=== PATIENT | male | born 1975 | race Two or more races ===

== ENCOUNTER 2017-08-31 23:34 | Observation (INO) | payer BC ==
[~2017-08-31] VITALS: Ht 162.6 cm; Wt 106.7 kg
[2017-08-31] MEDS ORDERED: PANTOPRAZOLE 40 MG 10ML VIAL IV ONE (23:45)
[2017-08-31] MEDS ORDERED: ASPIRIN 325 MG TAB PO ONE (23:45)
[2017-08-31] MEDS ORDERED: SODIUM CHLORIDE 0.9% 1000ML 1,000 ML ONE (23:45)
[2017-09-01] VITALS (9 sets, daily range): BP systolic 121–153; BP diastolic 77–92
[2017-09-01] MEDS ORDERED: IBUPROFEN200 MG PO (00:25)
[2017-09-01] MEDS ORDERED: SODIUM CHLORIDE FLUSH 10 ML SYR INJ PRN (01:30)
[2017-09-01] MEDS ORDERED: ACETAMINOPHEN 325 MG TAB PO PRN (01:30)
[2017-09-01] MEDS ORDERED: FAMOTIDINE 20 MG TAB PO SCH (01:30)
[2017-09-01] MEDS ORDERED: PROMETHAZINE HCL (IM) 25 MG/ML VIAL IV PRN (01:30)
[2017-09-01] MEDS: MORPHINE SULFATE 2 MG/ML SYR IV PRN ×3 (03:26→20:00)
[2017-09-01 08:30] LABS: CREATINE KINASE 74 IU/L (30-200)
[2017-09-01] MEDS ORDERED: ASPIRIN 81 MG ENTERIC COATED PO SCH (09:00)
--- NOTE | 2017-09-01 11:40 | Diagnostic Imaging Report ---
EXAMINATION: CHEST SINGLE (PORTABLE) INDICATION: \S\PLEURAL EFFUSION COMPARISON: None FINDINGS: AP view TUBES and LINES: Median sternotomy wires and mediastinal clips are present. LUNGS: Lungs are poorly inflated. Right lung is clear. Calcified granuloma in the lateral right lung base. Left-sided atelectasis and/or consolidation. PLEURA: Small to moderate left pleural effusion. HEART AND MEDIASTINUM: Cardiac size is moderately enlarged. BONES AND SOFT TISSUES: No acute osseous lesion. Soft tissues are unremarkable. UPPER ABDOMEN: No free air under the diaphragm. IMPRESSION: 1. Poorly inflated lungs. 2. Moderate cardiomegaly with small to moderate left pleural effusion. Signed by: Dr. Nadeem Faith M.D. on 09/01/2017 11:37 AM
[2017-09-01] MEDS ORDERED: ALBUTEROL SULF 0.083% NEB SOLN 3 ML NEB NEB PRN (17:30)
--- NOTE | 2017-09-01 17:53 | Consultation ---
DATE OF CONSULTATION: September 01, 2017 PULMONARY MEDICINE CONSULTATION HISTORY: Mr. Bautista is a pleasant 42-year-old gentleman with shortness of breath. The patient has a history of chest pain early in 2018. The patient had a CT of the chest, which demonstrated a large anterior mediastinal mass. At that point, he underwent a biopsy which was nondiagnostic by needle. Therefore, on June 14, 2017, the patient underwent operative assessment by Dr. Bennett. 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 There was dense adhesions to the pericardium from the midline to the left phrenic nerve area. There was no invasion into the pericardium or great vessels. No brian adenopathy. On frozen section analysis, there appeared to be abscess formation in the mass that was removed. 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 Therefore, thymus tissue was favored. After surgery, the patient never regained his baseline functionality. He was having early dyspnea. The patient had worsening shortness of breath so therefore he presented to the emergency room. CT of chest was done showing no PE on angiography with some dilated esophagus and elevated left diaphragm with moderate size effusion on the left and left lower lobe total atelectasis. I am consulted. PAST MEDICAL HISTORY: In May 2017, thymic mass, asthma, allergies, daily GERD, status post anterior median sternotomy in May 2017. MEDICATIONS: Included Oxybutynin and Nexium. ALLERGIES: TRAMADOL. SOCIAL HISTORY: No smoking. No significant alcohol use. No drugs. 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 No on-service duty and no known occupational exposures that were hazardous. FAMILY HISTORY: Noncontributory. REVIEW OF SYSTEMS GENERAL: No weight changes. OPHTHALMIC: No double vision. HEENT: No dry mouth. ENDOCRINE: No thyroid disease. LUNGS: No recent asthma exacerbations. CARDIAC: No heart attacks. GI: No diarrhea. : No blood in the urine. DERMATOLOGIC: No rash. NEUROLOGIC: No seizures. PHYSICAL EXAMINATION VITALS: Afebrile. Vital signs noted per electronic record. GENERAL: No acute distress. Alert and calm. HEENT: Normocephalic and atraumatic. NECK: Supple. Throat midline. LUNGS: Bilateral air entry. Few decreased breath sounds especially on the left side. No wheezes. CARDIOVASCULAR: S1 and S2. No murmurs, rubs or gallops. ABDOMEN: Soft and nontender. EXTREMITIES: No clubbing. No cyanosis. There is no edema. INTEGUMENT: No rash. No purpura. BNP level was normal. Other labs per record. IMPRESSION AND PLAN 1. Moderate size left pleural effusion, under evaluation: Differential diagnosis is wide and could include , lymphatic injury, post inflammatory, less likely infectious. Less likely immunologic, but cannot be ruled out. Cannot rule out infection especially with baseline necrotic features seen on pathology. 2. Elevated left diaphragm, not otherwise specified: Considerations could also be postsurgical complication of scarring, trapped lung, phrenic nerve injury, or other. 3. Obesity. 4. Possible obstructive sleep apnea. 5. History of asthma and allergies. 6. Distended esophagus and also gastroesophageal reflux disease as clinical correlation daily symptoms. 7. History of anterior mediastinal mass resection that was large and necrotic per pathology, and therefore, indeterminate. No cuauhtemoc malignancy known, however. Continue current treatment at this time. I eventually want to look at the slides from the thymus for mass resection. The patient will need surveillance of the mediastinum as this was nondiagnostic. For short term, the patient needs thoracentesis with image guidance. Outpatient PFTs are warranted to assess and rule out restrictive lung disease. Furthermore, the patient will need efforts to limit GERD, which can contribute to shortness of breath. If the GERD remains refractory, the patient also needs outpatient sleep study. Thank you very much, Dr. Kelly, for allowing me the chance to participate in the care of Mr. Bautista. Do not hesitate to contact me if I can help in any way. Job#: [id number] CRYSTAL
[2017-09-02] VITALS: BP 137/81
[2017-09-02 04:00] VITALS: BP 128/76
[2017-09-02 05:12] LABS: BASOPHILS # (AUTO) 0.1 (0.0-0.1); BASOPHILS % 0.6 % (0.0-1.0); EOSINOPHILS # (AUTO) 0.4 (0.0-0.4); EOSINOPHILS % 4.5 % (0.0-6.0); HEMATOCRIT 44.8 % (38.2-49.6); HEMOGLOBIN 14.3 g/dL (14.0-18.0); LYMPHOCYTES # (AUTO) 2.4 (1.0-3.2); LYMPHOCYTES % 28.6 % (18.0-39.1); MEAN CORPUSCULAR HEMOGLOBIN 25.9 pg (28-32); MEAN CORPUSCULAR HGB CONC 31.9 g/dL (31-35); MEAN CORPUSCULAR VOLUME 81.2 fL (81-99); MONOCYTES # (AUTO) 0.6 (0.2-0.8); MONOCYTES % 7.4 % (4.4-11.3); NEUTROPHILS % 58.5 % (38.7-80.0); PLATELET COUNT 388 x10e3/uL (140-360); RED BLOOD COUNT 5.52 x10e6/uL (4.3-5.7); RED CELL DISTRIBUTION WIDTH 14.5 % (11.7-14.4)
[2017-09-02 05:21] LABS: INR 1.07; PROTHROMBIN TIME 13.1 seconds (11.9-14.5)
[2017-09-02 05:22] LABS: PARTIAL THROMBOPLASTIN TIME 33.7 seconds (23.8-35.5)
[2017-09-02 05:25] LABS: ANION GAP 15.2 mmol/L (8-16); BLOOD UREA NITROGEN 12 mg/dL (7-26); BUN/CREATININE RATIO 10 (6-25); CALCIUM 9.8 mg/dL (8.4-10.2); CARBON DIOXIDE 28 mmol/L (22-29); CHLORIDE 100 mmol/L (98-107); CREATININE, SERUM 1.21 mg/dL (0.72-1.25); EST GLOMERULAR FILTRATION RATE > 60 ML/MIN (60-); GLUCOSE 105 mg/dL (74-118); POTASSIUM 4.2 mmol/L (3.5-5.1); SODIUM 139 mmol/L (136-145)
[2017-09-02 06:25] LABS: ALBUMIN 3.3 g/dL (3.5-5.0); BILIRUBIN,DIRECT 0.2 mg/dL (0.0-0.5)
[2017-09-02] MEDS ORDERED: LORAZEPAM INJ 2 MG/ML VIAL IV ONE (07:30)
[2017-09-02] MEDS: MORPHINE SULFATE 2 MG/ML SYR IV PRN (08:24)
[2017-09-02 10:20] VITALS: BP 140/85
[2017-09-02 12:16] VITALS: BP 129/83
--- NOTE | 2017-09-02 12:48 | Diagnostic Imaging Report ---
PROCEDURE: ULTRASOUND GUIDED THORACENTESIS COMPARISON: [facility], DX, CHEST SINGLE (PORTABLE), 09/01/2017, 11:21. INDICATIONS:PLEURAL EFFUSION FINDINGS: After informed consent was obtained, the patient was placed in the sitting position and preliminary ultrasound of the posterior chest identified a safe route into the left pleural effusion. The overlying skin was prepped and draped in usual sterile fashion. Lidocaine 1% was used for local anesthesia. Under ultrasound guidance, a 5 [place] centesis needle was advanced into the pleural fluid and only 10 cc's were able to be aspirated. The specimen was sent to the laboratory. The patient tolerated the procedure well and there were no immediate post-procedural complications. A post-thoracentesis chest radiograph will be obtained. CONCLUSION: Small volume ultrasound-guided left thoracentesis with removal of only 10 cc's. Luis Manuel Berman D.O. Dictated by: Luis Manuel Berman D.O. on 09/02/2017 at 12:52 Electronically approved by: Luis Manuel Berman D.O. on 09/02/2017 at 12:52
--- NOTE | 2017-09-02 12:52 | Diagnostic Imaging Report ---
PROCEDURE: CHEST XRAY POST PROCEDURE COMPARISON: Patients [facility], DX, CHEST SINGLE (PORTABLE), 09/01/2017, 11:21. INDICATIONS: STATUS POST THOARACENTESIS FINDINGS: LUNGS: Left basilar atelectasis. PLEURA: There is no pneumothorax. Small volume pleural effusion that is likely partially loculated. HEART \T\ MEDIASTINUM: The heart is prominent. BONES \T\ SOFT TISSUES: No acute findings. CONCLUSION: Small volume left pleural effusion. Luis Manuel Berman D.O. Dictated by: Luis Manuel Berman D.O. on 09/02/2017 at 12:56 Electronically approved by: Luis Manuel Berman D.O. on 09/02/2017 at 12:56
[2017-09-02] MEDS ORDERED: ONDANSETRON HCL INJ 2 MG/ML VIAL IV PRN (13:00)
[2017-09-02] MEDS ORDERED: SODIUM CHLORIDE 0.9% 250ML 250 ML ONE (13:04)
[2017-09-02 14:03] LABS: GLUCOSE,BODY FLUID 93 mg/dL
--- NOTE | 2017-09-02 15:07 | Discharge Summary ---
PRIMARY CARE DOCTOR: None. FINAL DIAGNOSIS: Left moderate pleural effusion. SECONDARY DIAGNOSES 1. Status post thymectomy about 2-1/2 months ago. 2. Morbid obesity. 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 PROCEDURES/STUDIES PERFORMED 1. CT of the chest. 2. Thoracentesis. HISTORY: Per H and P. HOSPITAL COURSE: The patient was admitted. No evidence of myocardial infarction by repeat negative troponins. Most likely, the etiology for his left-sided chest pain is pleural effusion. Etiology is unclear at this time, likely inflammatory response from his thymectomy. Thoracentesis was done. However, only 10 mL was able to be aspirated. From what we can tell, it appears to be exudative, but with a normal glucose level, this is not infectious. I have discussed with Dr. Rudd. At this time, the patient can be discharged home. He will have followup with Dr. Rudd for a pulmonary function test. The patient was seen and examined today. CONDITION ON DISCHARGE: Stable. DISCHARGE MEDICATIONS: Please see medication reconciliation form. JASMIN BAIG M.D. Job#: [id number]
--- NOTE | 2017-09-03 06:21 | Progress Note ---
DATE: September 02, 2017 PULMONARY MEDICINE PROGRESS NOTE SUBJECTIVE: Mr. Bautista was seen and examined at bedside. He continues to have the same shortness of breath. He did go down for thoracentesis. Only 10 mL was able to be removed. Patient did not have any pneumothorax after this procedure. It was assessed that the fluid seems a little bit thick during the procedure as per the observers, 96% oxygen saturation, room FiO2. REVIEW OF SYSTEMS: No bleeding, no chest pain. OBJECTIVE VITAL SIGNS: Noted per the chart record. GENERAL: No acute distress. Alert and calm. HEENT: Normocephalic, atraumatic. NECK: Supple. Throat midline. LUNGS: Bilateral air entry, a few decreased breath sounds both bases, especially the left base, no wheezes. CARDIOVASCULAR: S1, S2. No murmurs, rubs, or gallops. ABDOMEN: Soft, nontender. EXTREMITIES: No clubbing, no cyanosis, there is no edema. INTEGUMENT: No rash, no purpura. LABS: AST 57, ALT 145, alkaline phosphatase 136. Hematocrit 45, white count 8.5. IMPRESSION AND PLAN 1. Dyspnea, multifactorial. 2. Pleural effusion, suspect trapped lung postoperative. 3. Anterior mediastinal mass status post resection. 4. Obesity. 5. Significant gastroesophageal reflux disease, difficult to treat. 6. Possible obstructive sleep apnea. Patient should continue to try to mobilize. Patient at this time will have pleural fluid analysis sent although cytology will be difficult given the low output. However, from the chemistries and possibly culture, we want to see if there is any sign of infection. Patient once again will be best suited for evaluation of the slides from pathology. Patient may need further surveillance of the anterior mediastinum if too much of this tumor was necrotic, that it is hard to tell if it was malignant or not. We still want to find the etiology of the patient's shortness of breath and elevated left hemidiaphragm which will probably need PFTs and consideration for surgery if the patient remains trapped. Furthermore, I recommended for patient to continue treatment of GERD and to continue to remain active to prevent debility and deconditioning. Job#: [id number] FREDDY
== END 2017-09-02 17:03 | disposition home or self-care (01) ==
LOC: FSED 23:34 → ERHOLD 09-01 01:40 → IMCU 09-01 03:05 → MED/SURG 09-01 17:18
PROVIDERS: ADMIT Internal Medicine; ATTEND Internal Medicine
DX: J90 Pleural effusion, not elsewhere classified (principal); R07.9 Chest pain, unspecified; I30.8 Other forms of acute pericarditis; E66.01 Morbid (severe) obesity due to excess calories; K21.9 Gastro-esophageal reflux disease without esophagitis; Z68.41 Body mass index [BMI] 40.0-44.9, adult; Z98.890 Other specified postprocedural states
CPT/HCPCS: 32555 ×2; 36415 ×2; 71045 ×2; 71275; 74470; 80048; 80053; 80076; 81003; 82550; 82553; 82945; 83615; 83880; 84484; 85025 ×2; 85610 ×2; 85730; 87070; 87205; 88112; 88305; 93005; 99284; G0378 ×2; J2270 ×2; J2550; J7030; J7050

== ENCOUNTER → 2017-09-20 | Day surgery (SDC) | payer BC ==
[~2017-09-20] MED LIST: FENTANYL CITRATE/PF 100MCG/2 ML INJ ONE; IBUPROFEN200 MG PO; METOCLOPRAMIDE HCL 10 MG/2ML VIAL ONE; MIDAZOLAM HCL 2 MG/2 ML VIAL ONE; NEXIUM40 MG PO; PROPOFOL IV EMULSION 10 MG/ML 20 ML VIAL ONE; PROPOFOL IV EMULSION 10 MG/ML 50 ML VIAL ONE; SYMBICORT 16010.2 GM INH; VENTOLIN HFA18 GM INH
--- NOTE | 2017-09-20 14:48 | Operative Report ---
DATE OF PROCEDURE: September 20, 2017 PROCEDURE PERFORMED: Esophagogastroduodenoscopy with esophageal dilatation and biopsies. INDICATIONS FOR PROCEDURE: Acid reflux, dysphagia. MEDICATION: Patient was done under MAC. Please see anesthesiologist's note. PROCEDURE: With the patient in the left lateral decubitus position, the flexible fiberoptic Olympus gastroscope was introduced into the esophagus under direct visualization without any difficulty. There was some patchy erythema noted in the distal esophagus. A minute tongue of velvety red mucosa was noted to extend proximally from the GE junction, and that was biopsied to rule out Washburn's. Esophagus was dilated to size 52-[place] Richards. The scope was then advanced with ease into the stomach, and mucosa overlying the antrum and the body revealed some patchy, intense erythema and mild to moderate edema, and biopsies were obtained and sent to stain for H. pylori. The pylorus was of normal contour and shape. It was intubated with ease, and the scope was advanced all the way to the 2nd portion of the duodenum. The scope was then withdrawn slowly. Mucosa overlying the proximal 2nd portion and the duodenal bulb appeared to be within normal limits. The scope was then withdrawn back into the stomach and retroflexed. The mucosa overlying the fundus and the cardia appeared to be within normal limits. The scope was then straightened out. The stomach was decompressed. The scope was subsequently withdrawn. Patient tolerated the procedure well. IMPRESSION 1. Distal esophagitis, mild. 2. Rule out Washburn's esophagus. 3. Esophagus dilated to size 52-[place] Richards. 4. Gastritis, biopsied. Biopsies sent to stain for H. pylori. PLAN: Follow up histology. Increase Nexium to 40 mg 1 p.o. a.c. b.i.d. If symptoms persist, then will add Reglan 10 mg 1 p.o. a.c. t.i.d. and nightly. Job#: [id number]
== END | disposition home or self-care (01) ==
LOC: OR 09:58
PROVIDERS: ATTEND Internal Medicine Gastroenterology
DX: K21.9 Gastro-esophageal reflux disease without esophagitis (principal); K29.50 Unspecified chronic gastritis without bleeding; K20.9 Esophagitis, unspecified; I10 Essential (primary) hypertension; Z88.6 Allergy status to analgesic agent; Z68.39 Body mass index [BMI] 39.0-39.9, adult
CPT/HCPCS: 43239; 43450; J2250; J2765

== ENCOUNTER 2019-09-22 22:59 | Emergency (ER) | payer BC ==
[~2019-09-22] VITALS: Ht 160 cm; Wt 106.6 kg
[~2019-09-22 22:59] MED LIST changes: -FENTANYL CITRATE/PF 100MCG/2 ML INJ ONE; -METOCLOPRAMIDE HCL 10 MG/2ML VIAL ONE; -MIDAZOLAM HCL 2 MG/2 ML VIAL ONE; -PROPOFOL IV EMULSION 10 MG/ML 20 ML VIAL ONE; -PROPOFOL IV EMULSION 10 MG/ML 50 ML VIAL ONE
[2019-09-23] MEDS ORDERED: ONDANSETRON HCL 4 MG ORAL DISINTEGRATING TAB PO ONE
[2019-09-23] MEDS ORDERED: ONDANSETRON HCL 4 MG ORAL DISINTEGRATING TAB ONE (00:08)
--- NOTE | 2019-09-23 00:15 | NUR ---
RETURNED FROM CT. PT REFUSING CT STATING CLOSTERPHOBIC. INFORMED AND SPOKE TO PT. PT STILL REFUSED.
--- NOTE | 2019-09-23 00:30 | Emergency Department Note ---
History of Present Illnes History of Present Illness Chief Complaint: n/sweating x 1.5 hours History of Present Illness This is a 44 year old Other male . 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 Onset (how long ago): hour(s) (1.5) Radiation: Reports non-radiation Severity: moderate Duration (how long): hour(s) (1.5) Timing of current episode: intermittent Progression: partially resolved Chronicity: new Context: Reports recent illness; Denies recent surgery, Denies recent immobilization, Denies recent travel, Denies trauma/injury, Denies new medications, Denies hx of DVT/PE, Denies non- compliance w/ medications Relieving factors: none Exacerbating factors: none Associated symptoms: Reports headaches Treatments prior to arrival: none Past Medical/Family History Physician Review I have reviewed the patient's past medical and family history. Any updates have been documented here. Past Medical History Recent Fever: No Clinical Suspicion of Infectio: No New/Unexplained Change in Ment: No Past Medical History: Asthma Other Medical History: CHRONIC BACK PAIN Other Surgery: THYMUS GLAND REMOVED 2018 Social History Smoking Cessation: Never Smoker Alcohol Use: None Any Illegal Drug Use: No Physically hurt or threatened: No Other Last Tetanus: unknown Any Pre-Existing Lines (PICC,: No Review of Systems Review of Systems Constitutional: Reports no symptoms EENTM: Reports no symptoms Cardiovascular: Reports no symptoms Respiratory: Reports as per HPI Gastrointestinal: Reports as per HPI Genitourinary: Reports no symptoms Musculoskeletal: Reports no symptoms Integumentary: Reports no symptoms Neurological: Reports as per HPI, Reports headache Psychological: Reports no symptoms Endocrine: Reports no symptoms Hematological/Lymphatic: Reports no symptoms Review of other systems: All other systems negative Physical Exam Related Data Allergies: Coded Allergies: tramadol (Verified Allergy, Severe, 09/01/17) seizures, hives Triage Vital Signs Vital Signs Date Time Temp Pulse Resp B/P (MAP) Pulse Ox O2 Delivery O2 Flow Rate FiO2 09/22/19 23:15 98.1 79 18 157/92 99 Room Air Vital signs reviewed: Yes Physical Exam CONSTITUTIONAL Constitutional: Present well-developed, Present well-nourished HENT HENT: Present normocephalic, Present atraumatic, Present oropharynx clear/moist, Present nose normal, Present other (maxillary/ethmoidal sinus tederness) HENT L/R: Present left ext ear normal, Present right ext ear normal EYES Eyes: Reports PERRL, Reports conjunctivae normal NECK Neck: Present ROM normal PULMONARY Pulmonary: Present effort normal, Present breath sounds normal CARDIOVASCULAR Cardiovascular: Present regular rhythm, Present heart sounds normal, Present capillary refill normal, Present normal rate GASTROINTESTINAL Abdominal: Present soft, Present nontender, Present bowel sounds normal GENITOURINARY Genitourinary: Present exam deferred SKIN Skin: Present warm, Present dry MUSCULOSKELETAL Musculoskeletal: Present ROM normal NEUROLOGICAL Neurological: Present alert, Present oriented x 3, Present no gross motor or sensory deficits PSYCHOLOGICAL Psychological: Present mood/affect normal, Present judgement normal Results Imaging Imaging results reviewed: Yes (cxr wnl) Assessment & Plan Medical Decision Making MDM see below Assessment & Plan Final Impression: (1) Acute bronchitis (2) Acute sinusitis Depart Disposition: HOME, SELF-CARE Last Vital Signs Date Time Temp Pulse Resp B/P (MAP) Pulse Ox O2 Delivery O2 Flow Rate FiO2 09/22/19 23:15 98.1 79 18 157/92 99 Room Air Home Meds Active Scripts Prednisone (PREDNISONE) 20 Mg Tab, 60 MG PO DAILY PRN for MODERATE PAIN (4-6), #12 TAB Prov:TITO DIAMOND 09/23/19 Levofloxacin (LEVAQUIN) 750 Mg Tablet, 750 MG PO DAILY for 9 Days, #9 TAB Prov:TITO DIAMOND 09/23/19 Reported Medications Budesonide/Formoterol Fumarate (SYMBICORT 160-4.5 MCG INHALER) 10.2 Gm Hfa.aer.ad, INH BID 09/20/17 Albuterol Sulfate (VENTOLIN HFA) 18 Gm Hfa.aer.ad, INH PRN 09/20/17 Esomeprazole Magnesium (NEXIUM) 40 Mg Capsule.dr, 40 MG PO DAILY PROTONIX [facility]APE[facility] FOR NEXIUM PER [facility] 09/18/17 Medications in the ED Ondansetron HCl 4 mg ONCE ONCE PO Last administered on 09/23/19at 00:03; Admin Dose 4 MG; Start 09/23/19 at 00:00; Stop 09/23/19 at 00:01; Status UNV TITO DIAMOND Sep 23, 2019 00:29
--- NOTE | 2019-09-23 00:44 | Diagnostic Imaging Report ---
EXAMINATION: CXR 2 VIEW - HOPD INDICATION: ^cough ^[id number] ^0005 COMPARISON: Radiograph dated 09/01/2017 FINDINGS: TUBES and LINES: None. LUNGS: Normal lung volumes. Lungs are clear. No consolidations. PLEURA: No pleural effusion or pneumothorax. HEART AND MEDIASTINUM: The cardiomediastinal silhouette is unremarkable. Mediastinal surgical clips. BONES AND SOFT TISSUES: No acute osseous lesion. Soft tissues are unremarkable. Unchanged in underwires. UPPER ABDOMEN: No free air under the diaphragm. IMPRESSION: No acute thoracic radiographic abnormality. Signed by: Arnie Grissom MD on 09/23/2019 12:40 AM
[2019-09-23] MEDS ORDERED: LEVOFLOXACIN 500 MG TAB PO ONE (00:45)
[2019-09-23] MEDS ORDERED: LEVAQUIN750 MG PO (00:54)
[2019-09-23] MEDS ORDERED: PREDNISONE20 MG PO (00:54)
[2019-09-23] MEDS ORDERED: ONDANSETRON ODT8 MG PO (01:04)
[2019-09-23 01:08] VITALS: BP 157/92
[2019-09-23] MEDS ORDERED: LEVOFLOXACIN 500 MG TAB ONE (01:10)
== END 2019-09-23 01:08 | disposition home or self-care (01) ==
LOC: FSED 23:14
DX: R05 Cough (principal); J20.9 Acute bronchitis, unspecified; R11.0 Nausea; J01.90 Acute sinusitis, unspecified; M54.9 Dorsalgia, unspecified; G89.29 Other chronic pain
CPT/HCPCS: 71046; 99283; Q0162